=== PATIENT | male | born 2000 | race African-American/Black ===

== ENCOUNTER 2021-01-07 21:49 | Emergency (ER) | payer SELFPAY ==
[~2021-01-07] VITALS: Ht 185.4 cm; Wt 90.9 kg
[2021-01-07 21:51] VITALS: Ht 185.4 cm; Wt 90.9 kg
[2021-01-07] MEDS ORDERED: HYDROCODONE-AC1 EAC2 PO (22:49)
[2021-01-07 23:40] VITALS: BP 109/42
== END 2021-01-07 23:40 | disposition home or self-care (01) ==
LOC: D.ER 21:49
DX: S43.004A Unspecified dislocation of right shoulder joint, initial encounter (principal); X58.XXXA Exposure to other specified factors, initial encounter

== ENCOUNTER 2021-01-12 11:40 | Emergency (ER) | payer SELFPAY ==
[~2021-01-12] VITALS: Ht 185.4 cm; Wt 90.9 kg
[~2021-01-12 11:40] MED LIST: HYDROCODONE-AC1 EAC2 PO
[2021-01-12 12:17] LABS: BASOPHILS 0.1 % (0-2); EOSINOPHILS 0.5 % (0-7); HEMATOCRIT 42.9 % (42.0-54.0); IMMATURE GRANULOCYTES 0.1 % (0-5); LYMPHOCYTE ABS# 0.47 10x3/uL (1.32-3.57); LYMPHOCYTES 5.1 % (15-50); MCH 31.8 pg (26.0-34.0); MCV 90.9 fL (80.0-100.0); MEAN PLATELET VOLUME 10.8 fL (7.4-10.4); MONOCYTES 3.7 % (2-11); NEUTROPHIL ABS# 8.39 10x3/uL (1.78-5.38); NEUTROPHILS 90.5 % (40-80); PLATELET COUNT 203 10x3/uL (130-400); RBC 4.72 10x6/uL (4.20-6.10); RDW 12.3 % (11.5-14.5); WBC 9.3 10x3/uL (4.8-10.8)
[2021-01-12 12:31] LABS: CALC OSMOLALITY 276 mosm/kg (275-300); CALCIUM 9.3 mg/dL (8.5-10.1); CARBON DIOXIDE 25.3 mmol/L (21.0-32.0); CHLORIDE - SERUM 103 mmol/L (98-107); CREATININE - SERUM 0.7 mg/dL (0.6-1.3); GLUCOSE 105 mg/dL (74-106); POTASSIUM - SERUM 3.9 mmol/L (3.5-5.1); SODIUM 138 mmol/L (136-145); UREA NITROGEN 15 mg/dL (7-18); eGFR NON AFRICAN AMERICAN > 90 mL/min (90-120)
[2021-01-12 12:39] LABS: ALBUMIN 4.4 g/dL (3.4-5.0); ALKALINE PHOSPHATASE 70 U/L (30-120); ALT (SGPT) 22 U/L (10-68); AMYLASE - SERUM 44 U/L (25-115); BILIRUBIN - TOTAL 1.22 mg/dL (0.2-1.3); LIPASE 58 U/L (73-393); PROTEIN - SERUM 7.8 g/dL (6.4-8.2); TROPONIN-I < 0.017 ng/mL (0.000-0.060)
[2021-01-12 12:44] VITALS: BP 128/65
[2021-01-12 13:04] LABS: NITRITE NEGATIVE (NEGATIVE)
[2021-01-12 13:05] LABS: BILIRUBIN NEGATIVE (NEGATIVE); KETONE LARGE mg/dL (NEGATIVE); UROBILINOGEN NORMAL mg/dL (< 2)
[2021-01-12 13:06] LABS: WHITE CELLS - URINE 0-5 HPF (0-1)
== END 2021-01-12 13:08 | disposition left against medical advice (07) ==
LOC: D.ER 11:40
PROVIDERS: Family Medicine
DX: R10.9 Unspecified abdominal pain (principal); R11.2 Nausea with vomiting, unspecified; Z53.29 Procedure and treatment not carried out because of patient's decision for other reasons